=== PATIENT | male | born 2000 | race Caucasian/White ===

== ENCOUNTER 2019-10-03 00:08 | Emergency (ER) | payer MEDICAID ==
[~2019-10-03] VITALS: Ht 180.3 cm; Wt 93.0 kg
[2019-10-03 00:15] VITALS: Ht 180.3 cm; Wt 93.0 kg
[2019-10-03 02:00] VITALS: BP 141/57
== END 2019-10-03 02:00 | disposition home or self-care (01) ==
LOC: ED 00:08
DX: S93.401A Sprain of unspecified ligament of right ankle, initial encounter (principal); X50.1XXA Overexertion from prolonged static or awkward postures, initial encounter; Y93.02 Activity, running; Y92.89 Other specified places as the place of occurrence of the external cause; Y99.8 Other external cause status